=== PATIENT | female | born 1980 | race Asian ===

== ENCOUNTER 2017-12-06 08:50 | Outpatient (CLI) | payer OTHER ==
[~2017-12-06 08:50] MED LIST: FISH1SGL18; NITR100C7 PO; PREN-385 PO
[2017-12-06 09:43] LABS: BASOPHILS % (AUTO) 0.2 % (0.0-2.0); EOSINOPHILS # (AUTO) 0.6 K/uL (0-0.4); EOSINOPHILS % (AUTO) 4.8 % (0.0-4.0); HEMATOCRIT 45.5 % (36-48); HEMOGLOBIN 15.1 g/dL (12.0-16.0); LYMPHOCYTES # (AUTO) 1.7 K/uL (2.5-16.5); MEAN CORPUSCULAR HEMOGLOBIN 30 pg (27-31); MEAN CORPUSCULAR HGB CONC 33 g/dL (33-37); MEAN CORPUSCULAR VOLUME 88.6 fL (80-94); MONOCYTES # (AUTO) 0.5 K/uL (0.8-1.0); NEUTROPHILS # (AUTO) 9.5 K/uL (1.8-7.7); PLATELET COUNT (AUTO) 221 K/uL (140-450); RED BLOOD CELL COUNT(AUTO) 5.14 MIL/uL (4.20-5.40); RED CELL DISTRIBUTION WIDTH 13.3 % (11.6-13.7); WHITE BLOOD COUNT (AUTO) 12.4 K/uL (4.8-10.8)
[2017-12-06 10:46] LABS: ALBUMIN 3.9 g/dL (3.4-5.0); ANION GAP 11.1 (8-16); CARBON DIOXIDE 26.5 mmol/L (21-32); CHOL/HDL RATIO 3.1 (1-4.5); CREATININE 1.1 mg/dL (0.6-1.3); FREE T4 (FREE THYROXINE) 0.92 ng/dL (0.76-1.46); POTASSIUM 3.6 mmol/L (3.5-5.1); THYROID STIMULATING HORMONE 1.4 uIU/mL (0.34-3.74); TOTAL BILIRUBIN 0.6 mg/dL (0.0-1.0)
[2017-12-07 15:33] LABS: TRIIODOTHYRONINE FREE 2.9 pg/mL (2.0 - 4.4)
== END 2017-12-06 20:08 | disposition home or self-care (01) ==
LOC: MLB 08:50
PROVIDERS: ATTEND Internal Medicine Geriatric Medicine
DX: Z00.01 Encounter for general adult medical examination with abnormal findings (principal); F32.3 Major depressive disorder, single episode, severe with psychotic features; L80 Vitiligo
CPT/HCPCS: 36415; 80053; 82306; 84439; 84443; 84479; 84480; 84481; 85025; 85651; 86038; 86376; 86430